=== PATIENT | male | born 1955 | race Caucasian/White ===

== ENCOUNTER 2024-03-24 10:29 | Inpatient (IN) | payer OTHER ==
[~2024-03-24] VITALS: Ht 170.2 cm; Wt 68.2 kg
[2024-03-24] MEDS ORDERED: DEXT1DRO OU (12:02)
[2024-03-24] MEDS ORDERED: CALC625T66 PO (12:02)
[2024-03-24] MEDS ORDERED: OMEP20 PO (12:02)
[2024-03-24] MEDS ORDERED: NAPR-1196 PO (12:02)
[2024-03-24 12:58] LABS: APPEARANCE,URINE CLEAR (CLEAR); BILIRUBIN,URINE NEGATIVE (NEGATIVE); COLOR,URINE COLORLESS (YELLOW); GLUCOSE, URINE (UA) NEGATIVE (NEGATIVE); LEUKOCYTE ESTERASE ,URINE NEGATIVE (NEGATIVE); NITRATE,URINE NEGATIVE (NEGATIVE); OCCULT BLOOD,URINE NEGATIVE (NEGATIVE); PH,URINE 7.5 (5.0-8.0); PROTEIN,URINE NEGATIVE (NEGATIVE); SPECIFIC GRAVITIY, URINE 1.006 (1.003-1.030); UROBILINOGEN,URINE <=1.0 mg/dL (<=1.0)
[2024-03-24 12:58] LABS: BASOPHILS % (AUTO) 0.2 % (0.0-2.0); EOSINOPHILS % (AUTO) 1.1 % (1.0-6.0); HEMATOCRIT 42.8 % (41-53); HEMOGLOBIN 15.1 g/dL (13.5-17.5); LYMPHOCYTES # (AUTO) 1.6 K/uL (1.0-4.8); LYMPHOCYTES % (AUTO) 24.1 % (22.0-44.0); MEAN CORPUSCULAR HEMOGLOBIN 31.1 pg (26.0-34.0); MEAN CORPUSCULAR HGB CONC 35.4 G/dL (31.0-37.0); MEAN CORPUSCULAR VOLUME 88 fL (80-100); MONOCYTES # (AUTO) 0.5 K/uL (0.1-1.0); NEUTROPHILS # (AUTO) 4.6 K/uL (1.8-7.7); NEUTROPHILS % (AUTO) 67.6 % (40.0-70.0); PLATELET COUNT (AUTO) 234 K/uL (150-450); RED BLOOD CELL COUNT(AUTO) 4.88 MIL/uL (4.50-5.90); RED CELL DISTRIBUTION WIDTH 12.7 % (11.5-14.5); WHITE BLOOD COUNT (AUTO) 6.8 K/uL (4.5-11.0)
[2024-03-24 13:09] LABS: ANION GAP 5 mmol/L (8-16); CALCIUM, TOTAL 8.6 mg/dL (8.8-10.5); CARBON DIOXIDE 29 mmol/L (22-29); CHLORIDE 106 mmol/L (98-107); CREATININE 0.74 mg/dL (0.60-1.30); GLOMERULAR FILTR. RATE CALC > 60 mL/min (>60); GLUCOSE,RANDOM 87 mg/dL (70-110); SODIUM SERUM 140 mmol/L (136-145); UREA NITROGEN, BLOOD 11 mg/dL (7-18)
[2024-03-24 13:15] LABS: ALANINE AMINOTRANSFERASE 24 U/L (12-78); ALBUMIN 3.4 g/dL (3.4-5.0); ALKALINE PHOSPHATASE 62 U/L (46-116); ASPARTATE AMINOTRANSFERASE 18 U/L (15-37); BILIRUBIN,TOTAL 0.5 mg/dL (0.1-1.0); LIPASE 43 U/L (16-77); TOTAL PROTEIN, SERUM 6.8 g/dL (6.4-8.2)
[2024-03-24] MEDS ORDERED: DEXTROSE 5%-LACTATED RINGERS 1,000 ML IV ONE (13:45)
[2024-03-24] MEDS: DICYCLOMINE HCL 10 MG CAPSULE PO ONE (14:07)
[2024-03-24] MEDS: DEXTROSE 5%-LACTATED RINGERS 500 ML IV ONE (14:07)
[2024-03-24] MEDS ORDERED: ALBUTEROL SULFATE 2.5 MG/0.5 ML NEB SOLUTION NEB PRN (18:30)
[2024-03-24] MEDS ORDERED: IPRATROPIUM BROMIDE 0.5 MG/2.5 ML NEB SOLUTION NEB PRN (18:30)
[2024-03-24] MEDS ORDERED: MORPHINE SULFATE 2 MG/ML SYRINGE IVP PRN (18:30)
[2024-03-24] MEDS ORDERED: HYDROCODONE/ACETAMINOPHEN 5-325 MG TABLET PO PRN (18:30)
[2024-03-24] MEDS ORDERED: ONDANSETRON HCL 4 MG/2 ML VIAL IVP PRN (18:30)
[2024-03-24] MEDS ORDERED: ZOLPIDEM TARTRATE 5 MG TABLET PO PRN (18:30)
[2024-03-24] MEDS ORDERED: ACETAMINOPHEN 325 MG TABLET PO PRN (18:30)
[2024-03-24] MEDS ORDERED: BISACODYL 10 MG RECTAL RECTAL SUPPOSITORY PR PRN (18:30)
[2024-03-24] MEDS: DEXTROSE 5%-0.45% SODIUM CHL 1,000 ML IV ONE (18:55)
[2024-03-24] MEDS ORDERED: SODIUM CHLORIDE 0.9% 100 ML ONE (19:14)
[2024-03-24] MEDS ORDERED: IOHEXOL 350 MG/ML 100 ML VIAL ONE ×2 (19:14→19:47)
[2024-03-25] MEDS: HEPARIN SODIUM,PORCINE 5,000 UNITS/ML VIAL SQ SCH (00:29)
[2024-03-25 05:27] VITALS: BP 111/60; PULSE 67; RESP 18; TEMP 97.6; O2SAT 97
[2024-03-25 08:16] VITALS: BP 117/66; PULSE 61; RESP 18; TEMP 98.1; O2SAT 97
[2024-03-25 20:00] VITALS: BP 104/57; PULSE 76; RESP 18; TEMP 97.9; O2SAT 95
[2024-03-26 04:00] VITALS: BP 117/62; PULSE 64; RESP 20; TEMP 98.2; O2SAT 95
[2024-03-26 08:07] VITALS: BP 131/76; PULSE 73; RESP 18; TEMP 98; O2SAT 99
[2024-03-26 19:42] VITALS: BP 117/62; PULSE 64; RESP 20; TEMP 98.2; O2SAT 95
[2024-03-27 04:00] VITALS: BP 139/71; PULSE 68; RESP 20; TEMP 98; O2SAT 95
[2024-03-27 07:50] VITALS: BP 118/69; PULSE 66; RESP 18; TEMP 97.9; O2SAT 98
[2024-03-27] MEDS: MAGNESIUM HYDROXIDE SUSPENSION 30 ML UDCUP PO PRN (08:18)
[2024-03-27 19:19] VITALS: BP 139/70; PULSE 75; RESP 20; TEMP 97.8; O2SAT 96
[2024-03-27 19:32] VITALS: BP 133/63; PULSE 84; RESP 20; TEMP 98.2; O2SAT 96
[2024-03-28 04:50] VITALS: BP 124/68; PULSE 67; RESP 18; TEMP 97.7; O2SAT 96
[2024-03-28] MEDS ORDERED: RINGERS SOLUTION,LACTATED 1,000 ML IV ONE (05:16)
[2024-03-28] MEDS: RINGERS SOLUTION,LACTATED 1,000 ML IV ONE (06:22)
[2024-03-28] MEDS: ETHYL ALCOHOL 62% ANTISEPTIC NASAL SANITIZER 0.6 ML AMPUL NASAL ONE (06:23)
[2024-03-28] MEDS ORDERED: GLYCOPYRROLATE 0.2 MG/ML VIAL ONE (06:23)
[2024-03-28] MEDS ORDERED: MIDAZOLAM HCL 2 MG/2 ML VIAL ONE (06:23)
[2024-03-28] MEDS ORDERED: SUGAMMADEX SODIUM 200 MG/2 ML VIAL IVP ONE (06:23)
[2024-03-28] MEDS ORDERED: PROPOFOL 1% 20 ML VIAL IVP ONE (06:23)
[2024-03-28] MEDS: CHLORHEXIDINE GLUCONATE 2% TOWELETTE [2'S/6'S] TP ONE (06:23)
[2024-03-28] MEDS ORDERED: FentaNYL CITRATE PF 100 MCG/2 ML VIAL ONE (06:23)
[2024-03-28] MEDS ORDERED: ACETAMINOPHEN/ISO-OSM 1000 MG/100 ML BOTTLE IV ONE (06:23)
[2024-03-28] MEDS ORDERED: DEXAMETHASONE SOD PHOS 4 MG/ML VIAL ONE (06:23)
[2024-03-28] MEDS ORDERED: ONDANSETRON HCL 4 MG/2 ML VIAL ONE (06:23)
[2024-03-28] MEDS ORDERED: LIDOCAINE/PF 2% 5 ML VIAL ONE (06:23)
[2024-03-28] MEDS ORDERED: ROCURONIUM BROMIDE 10 MG/ML 5 ML VIAL ONE (06:23)
[2024-03-28] MEDS ORDERED: 0.9% SODIUM CHLORIDE 10 ML VIAL ONE (06:23)
[2024-03-28] MEDS ORDERED: KETOROLAC TROMETHAMINE 60 MG/2 ML VIAL IM ONE (06:23)
[2024-03-28] MEDS: LIDOCAINE 2%/EPI 1:200,000/PF 20 ML VIAL ONE (07:30)
[2024-03-28] MEDS: BUPIVACAINE HCL/PF 0.5% 10 ML VIAL ONE (07:30)
[2024-03-28] MEDS ORDERED: HYDROmorphone HCL 2 MG/ML SYRINGE IVP PRN (08:15)
[2024-03-28] MEDS ORDERED: FentaNYL CITRATE PF 100 MCG/2 ML VIAL IVP PRN (08:15)
[2024-03-28] MEDS ORDERED: MEPERIDINE-PF 25 MG/ML VIAL IVP PRN (08:15)
[2024-03-28] MEDS ORDERED: ONDANSETRON HCL 4 MG/2 ML VIAL IVP PRN (08:45)
[2024-03-28] MEDS ORDERED: ACETAMINOPHEN 500 MG TABLET PO PRN (08:45)
[2024-03-28 09:45] VITALS: BP 153/78; PULSE 91; RESP 17; TEMP 97.7; O2SAT 97
[2024-03-28] MEDS: IBUPROFEN 800 MG TABLET PO PRN (10:59)
[2024-03-28] MEDS: OXYGEN THERAPY IH SCH (20:00)
[2024-03-28 20:47] VITALS: BP 134/78; PULSE 86; RESP 18; TEMP 97.9; O2SAT 95
[2024-03-29 04:53] VITALS: BP 139/74; PULSE 76; RESP 20; TEMP 98.1; O2SAT 97
[2024-03-29 08:43] VITALS: BP 138/78; PULSE 82; RESP 19; TEMP 98; O2SAT 98
== END 2024-03-29 18:30 | DRG 352 ==
LOC: EMS 10:39 → EDH 19:27 → 6S 23:38
PROVIDERS: ADMIT Hospitalist; ATTEND Hospitalist
PROC: 0YU54JZ Supplement Right Inguinal Region with Synthetic Substitute, Percutaneous Endoscopic Approach (ICD-10-PCS; principal; 2024-03-28 07:30)
DX: K40.30 Unilateral inguinal hernia, with obstruction, without gangrene, not specified as recurrent (principal); K21.9 Gastro-esophageal reflux disease without esophagitis; N28.1 Cyst of kidney, acquired; N40.0 Benign prostatic hyperplasia without lower urinary tract symptoms; M43.16 Spondylolisthesis, lumbar region
CPT/HCPCS: 74019; 74177; 80048; 80076; 81003; 83690; 85025; 86850; 86900; 86901; 87081; 93005; 99285; G0238; J0131; J1100; J1171; J1644; J1885; J2250; J2405; J2704; J3010; J3490; J7050; J7120